=== PATIENT | female | born 1960 ===

== ENCOUNTER 2022-08-10 09:06 | Inpatient (IN) | payer OTHER ==
[~2022-08-10] VITALS: Ht 161.3 cm; Wt 72.6 kg
[2022-08-14] MEDS ORDERED: TRULICITY1.5 MG/0.5 (15:17)
[2022-08-14] MEDS ORDERED: JARDIANCE25 MG PO (15:17)
[2022-08-14] MEDS ORDERED: CLINORIL PO (15:18)
[2022-08-14] MEDS ORDERED: PROTONIX20 MG PO (15:18)
[2022-08-14] MEDS ORDERED: ZYRTEC10 M3 PO (15:18)
[2022-08-14] MEDS ORDERED: D3 + K2 DOTS 11 EACH PO (15:19)
[2022-08-14] MEDS ORDERED: CRESTOR20 MG PO (15:19)
[2022-08-16] MEDS ORDERED: MEDROLPACK PO (07:47)
[2022-08-16] MEDS ORDERED: PERCOCET 5-3251 EACH PO (07:47)
[2022-08-16] MEDS ORDERED: COLACE100 MG PO (07:47)
== END 2022-08-17 13:34 | disposition home or self-care (01) | DRG 473 ==
LOC: O/R 08-16 07:19 → SURG 08-16 10:11 → SURH 08-16 10:45 → SURG 08-17 13:34
PROVIDERS: ADMIT Orthopaedic Surgery Orthopaedic Surgery of the Spine; ATTEND Orthopaedic Surgery Orthopaedic Surgery of the Spine
PROC: 0RT30ZZ Resection of Cervical Vertebral Disc, Open Approach (ICD-10-PCS; 2022-08-16)
PROC: 07DS0ZZ Extraction of Vertebral Bone Marrow, Open Approach (ICD-10-PCS; 2022-08-16)
PROC: 4A12X4Z Monitoring of Cardiac Electrical Activity, External Approach (ICD-10-PCS; 2022-08-16)
PROC: 0RG20A0 Fusion of 2 or more Cervical Vertebral Joints with Interbody Fusion Device, Anterior Approach, Anterior Column, Open Approach (ICD-10-PCS; principal; 2022-08-16 10:45)
DX: M50.022 Cervical disc disorder at C5-C6 level with myelopathy (principal); E11.9 Type 2 diabetes mellitus without complications; Z79.4 Long term (current) use of insulin